=== PATIENT | male | born 1990 | race Caucasian/White ===

== ENCOUNTER 2016-07-26 11:11 | Emergency (ER) | payer OTHER ==
[2016-07-26 11:21] VITALS: BP 106/68; PULSE 73; TEMP 98; BMI 24.4
--- NOTE | 2016-07-26 11:40 | PDOC ---
History of Present Illness - General Chief Complaint: Injury Stated Complaint: ANKLE INJURY Time Seen by Provider: 07/26/16 11:27 History Source: Patient Exam Limitations: No Limitations - History of Present Illness Initial Comments: CHIEF COMPLAINT: 26 y/o afebrile male c/o right ankle pain. 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 He states he had instant pain but was able to walk on the affected foot. Vital signs on arrival are within normal limits. REVIEW OF SYSTEMS: GENERAL/CONSTITUTIONAL: No fever/chills. No weakness. No weight change. MUSCULOSKELETAL: +right ankle pain. No neck or back pain. SKIN: No rash or easy bruising. NEUROLOGIC: No headache, vertigo, loss of consciousness, or loss of sensation. PHYSICAL EXAM: VITAL_SIGNS: within normal limits GENERAL_APPEARANCE: alert, cooperative, mild obvious discomfort with ambulation. MENTAL_STATUS: speech clear, oriented X 3, responds appropriately to questions. NEURO: motor intact and sensory intact in injured extremity. EXTREMITIES: 2+ dorsalis pedis pulse in right foot. Full flexion, extension, eversion and inversion of right ankle. Minimal swelling and TTP over the right cuboid bone without crepitus. SKIN: warm, dry, good color. Past History - Past Medical History Allergies/Adverse Reactions: Allergies Allergy/AdvReac Type Severity Reaction Status Date / Time No Known Drug Allergies Allergy Verified 07/26/16 11:17 venom-honey bee Allergy Difficulty Verified 07/26/16 11:17 [bee venom (honey bee)] Breathing Home Medications: Ambulatory Orders NK [No Known Home Medication] 07/26/16 Other medical history: NONE - Psycho/Social/Smoking Cessation Hx Anxiety: No Suicidal Ideation: No Smoking Status: Yes Smoking History: Current every day smoker Have you smoked in the past 12 months: Yes Number of Cigarettes Smoked Daily: 10 Information on smoking cessation initiated: Yes 'Breaking Loose' booklet given: 07/26/16 Hx Alcohol Use: No Drug/Substance Use Hx: No Substance Use Type: None *Physical Exam - Vital Signs Last Vital Signs Temp Pulse Resp BP Pulse Ox 98.0 F 73 18 106/68 100 07/26/16 11:18 07/26/16 11:18 07/26/16 11:18 07/26/16 11:18 07/26/16 11:18 ED Treatment Course - RADIOLOGY Radiology Studies Ordered: Category Date Time Status ANKLE & FOOT-RIGHT* [RAD] Stat Radiology 07/26/16 11:28 Ordered Medical Decision Making - Medical Decision Making A/P: 26 y/o afebrile male with right ankle sprain. Plan is as follows: 1. PO motrin 2. Ankle xray right ankle xray IMPRESSION: (Wet read) No acute fracture or bony deformities. Will wrap affected ankle in ROJAS bandage. Suggested he follow RICE instructions , take Motrin for pain and f/u with Dr. Saba in 1 week if no improvement in symptoms. The patient verbalizes understanding of all instructions, has no further questions and is awaiting discharge. *DC/Admit/Observation/Transfer Diagnosis at time of Disposition: Right ankle sprain Qualifiers: Encounter type: initial encounter Involved ligament of ankle: unspecified ligament Qualified Code(s): S93.401A - Sprain of unspecified ligament of right ankle, initial encounter - Discharge Dispostion Disposition: HOME Condition at time of disposition: Good - Referrals Referrals: Jorge Saba MD [Staff Physician] - - Patient Instructions Printed Discharge Instructions: DI for Ankle Sprain, How To Perform RICE (Rest , Ice, Compress, Elevate) Additional Instructions: Discharge Instructions: -Use ROJAS bandage for comfort -Follow RICE instructions -Take Motrin for pain/swelling if needed -Follow up with Dr. Saba if no improvement in 1 week - Post Discharge Activity Work/School Note: Back to Work
[2016-07-26] MEDS ORDERED: IBUPROFEN 600 MG TABLET (FP) PO ONE ×2 (12:05→12:08)
== END 2016-07-26 12:37 | disposition home or self-care (01) ==
LOC: JERFT 11:11
DX: S93.401A Sprain of unspecified ligament of right ankle, initial encounter (principal)
CPT/HCPCS: 73610-TC-RT; 73630-TC-RT; 99281-25

== ENCOUNTER 2018-09-13 14:38 | Emergency (ER) | payer OTHER | END 2018-09-13 15:53 | disposition home or self-care (01) | LOC: JER 14:38 → JERFT 15:53 ==